=== PATIENT | female | born 1955 | race Caucasian/White ===

== ENCOUNTER 2025-01-29 16:53 | Emergency (ER) | payer MEDICARE, SELFPAY ==
[2025-01-29 17:10] VITALS: BP 123/85; PULSE 84; TEMP 36.6; O2SAT 95; BMI 32.4
--- NOTE | 2025-01-29 17:28 | ED_ITS ---
HPI HPI - General Adult General Chief complaint: Animal Bite Stated complaint: Dog Bite Time Seen by Provider: 01/29/25 17:17 Source: patient Mode of arrival: walk-in History of Present Illness HPI narrative: Patient is a 69-year-old female that presents to the emergency department with complaints of dog bite to the right hand. The dog was a puppy boxer that she was playing with and his tooth ended up catching the skin on the top of her right hand. She denies pain or loss of motion. Her tetanus is not up-to-date. Related Data Previous Rx's ?Medication ?Instructions ?Recorded amoxicillin 875 mg-potassium 1 tab PO BID 7 days #14 t abs 01/29/25 clavulanate 125 mg tablet Allergies Allergy/AdvReac Type Severity Reaction Status Date / Time Unable to Assess Allergy Verified 01/29/25 17:16 Review of Systems ROS Status of ROS 10 or more systems reviewed and unremark able except as noted in history and below PFSH PFSH Social History Little interest or pleasure in doing things: not at all Feeling down, depressed, or hopeless: not at all Exam Narrative Exam Narrative: General: No distress, age-appropriate Skin: Warm, dry, no pallor. No rash. 2 cm laceration to the dorsal aspect of the right hand, overlying the second metacarpal just proximal to the MCP joint. Extensor digitorum tendons able to be visualized, appear intact. Head: Normocephalic, atraumatic. Neck: Supple, non-tender. Eye: Pupils are equal, round and EOMI. No scleral icterus. Ears, Nose, Mouth, and Throat: No nasal mucosal hypertrophy. Oral mucosa is moist, no posterior oropharynx erythema, uvula is mid-line Cardiovascular: Regular Rate and Rhythm without murmur, gallop or rub. Respiratory: No accessory muscle use or respiratory distress. Musculoskeletal: Full ROM of all extremities, no calf or popliteal tenderness. Full ROM of the right second digit in flexion and extension at the MCP, PIP, and DIP. 5/5 strength in extension, DIP, PIP, and MCP isolated and tested. Neurological: A&O x4. No cranial nerve dysfunction observed. No truncal ataxia. Moves all extremities. Sensation intact. Psychiatric: Cooperative and interactive. Normal mood and affect. Constitutional Vital Signs, click to edit/add: Last Vital Signs Temp 97.8 F 01/29/25 17:10 Pulse 84 01/29/25 17:10 Resp 16 01/29/25 17:10 BP 123/85 01/29/25 17:10 Pulse Ox 95 01/29/25 17:10 O2 Del Method Room Air 01/29/25 17:10 Documenting provider has reviewed patient's vital signs: yes Course Vital Signs Vital signs: Vital Signs Temperature 97.8 F 01/29/25 17:10 Pulse Rate 84 01/29/25 17:10 Respiratory Rate 16 01/29/25 17:10 Blood Pressure 123/85 01/29/25 17:10 Pulse Oximetry 95 01/29/25 17:10 Oxygen Delivery Method Room Air 01/29/25 17:10 Temperature 97.8 F 01/29/25 17:10 Pulse Rate 84 01/29/25 17:10 Respiratory Rate 16 01/29/25 17:10 Blood Pressure 123/85 01/29/25 17:10 Pulse Oximetry 95 01/29/25 17:10 Oxygen Delivery Method Room Air 01/29/25 17:10 Medical Decision Making MDM Narrative Medical decision making narrative: This is a 69-year-old female that presented to the ED with a dog bite from her boxer to the dorsum of her right hand. Extensor digitorum tendons clearly visualized, they do not appear to be lacerated. She has full flexion and extension ROM of the second digit, 5/5 strength finger extension strength, tested at PIP, PIP, and MCP. Tetanus ordered. Will give her first dose of Augmentin 875mg here. Wound irrigated and repaired at bedside under local anesthesia. See procedure note. Wound dressed with nonstick dressing and splint to reduce gripping/pushing/pulling with the right hand. I instructed her to wear the splint for 3 to 5 days to help reduce risk of dehiscence of wound. Return to ED precautions discussed including fever, night sweats, chills, new or increasing redness around wound, carnes/brown thick purulent drainage. Prescription for Augmentin 875/125 mg twice daily x 7 days was sent to pharmacy. Dr. Valladares, orthopedics, pain placed in discharge and I discussed follow-up with him for wound recheck and suture removal. Patient discharged in stable condition with plan for follow-up with orthopedics for wound recheck and suture removal. Differential Diagnosis Differential Diagnosis: Dog bite infection, tendon laceration Discharge Plan Discharge Chief Complaint: Animal Bite Clinical Impression: Dog bite, Hand laceration Patient Disposition: Home, Self-Care Time of Disposition Decision: 18:05 Condition: Good Mode of Transportation: Private Vehicle Prescriptions / Home Meds: New amoxicillin-pot clavulanate 875-125 mg tablet 1 tab PO BID 7 Days Qty: 14 0RF Print Language: Czech Instructions: Animal Bite (ED), Laceration (ED) Additional Instructions: Keep finger splint in place for 3-5 days, remove for hygiene. Monitor wound for any signs or symptoms of infection including new or worsening redness, thick carnes/brown odorous drainage. Return to the emergency department for any of the symptoms as well as fever, night sweats, or chills. Keep wound dry for 24 hours, then wash daily with soap and water. Do not put wound directly under water, do not submerge in water. Have sutures removed in 7-10 days. Follow-up with Ortho for wound recheck and suture removal. Referrals: Ifeanyi Garcia DO [Physician, Orthopedics] - As soon as possible Referral Note: For wound recheck and suture removal. Physician,Non-Staff, [Primary Care Provider] - 1 week Discharge Date/Time: 01/29/25 18:52
--- OUTSIDE RECORDS SUMMARY | 2025-01-29 17:44 | XMS_ITS | Clinical Summary ---
Author Organization [facility] Address [address] [place] [address] Care Team Providers Care Surgical Tech Name Role Phone Unavailable Primary Care Provider Unavailabl e Social History Tobacco UseTypesPacks/DayYears UsedDateSmoking Tobacco: Never Assessed CommentsUnknownSex and Gender InformationValueDate RecordedSex Assigned at Not on fileLegal JyvVbgucn04/15/2023 6:51 PM EDTGender IdentityNot on fileSexual OrientationNot on file Last Filed Vital Signs Vital SignReadingTime TakenCommentsBlood [id number]/5707 12:00 PM EDT Pulse--Temperature--Respiratory Rate--Oxygen Saturation--Inhaled Oxygen Concentration--Yhermb094 kg (230 lb)02/17/2020 12:00 PM PFRZwvzvo455.1 cm (5' 5 )02/17/2020 12:00 PM ESTBody Mass Index38.27104/18/2019 12:00 PM EST Plan of Treatment Not on file
--- OUTSIDE RECORDS SUMMARY | 2025-01-29 17:44 | XMS_ITS | Clinical Summary ---
Author Organization [facility] Address [address] [facility] [place] [address] Phone Care Team Providers Care Can Marker Name Role Phone Unavailable Primary Care Provider Unavailabl e Social History Tobacco UseTypesPacks/DayYears UsedDateSmoking Tobacco: Never Assessed CommentsUnknownSex and Gender InformationValueDate RecordedSex Assigned at Not on fileLegal MchKpcclg20/26/2022 4:50 AM ESTGender IdentityNot on fileSexual OrientationNot on file Plan of Treatment Not on file
[2025-01-29] MEDS: DIPHTH,PERTUSS(ACELL),TET VAC 0.5 ML SYRINGE IM (18:22)
[2025-01-29] MEDS: AMOXICILLIN/POT CLAV 875-125 MG TABLET 1 TAB PO (18:24)
[2025-01-29] MEDS: LIDOCAINE HCL 1% 100 MG/10 ML MDV INJ (18:24)
--- NOTE | 2025-01-29 18:50 | PC.NURSE ---
sutures placed by Pa. patient denies needs. dressing dry and intact. finger splinted with gauze wrap
== END 2025-01-29 18:52 | disposition home or self-care (01) ==
PROVIDERS: Emergency Provider Emergency Medicine
DX: S61.411A Laceration without foreign body of right hand, initial encounter (principal); W54.0XXA Bitten by dog, initial encounter
CPT/HCPCS: 12001; 90471; 90715; 99283